=== PATIENT | female | born 1960 | race Caucasian/White ===

== ENCOUNTER 2017-09-15 14:38 | Emergency (ER) | payer MEDICARE, MEDICAID ==
[2017-09-15 15:27] LABS: Bilirubin Small (Negative); Blood, Urine Negative (Negative); Clarity Clear (Clear); Glucose, Urine (Dipstick) Negative (Negative); Leukocyte Negative (Negative); Nitrite Negative (Negative); Protein, Urine (Dipstick) Negative (Neg-Trace); Urobilinogen 0.2 mg/dL (0.2-1.0)
== END 2017-09-15 16:34 | disposition home or self-care (01) ==
LOC: BURERS 14:38
DX: M54.5 Low back pain (principal); E11.9 Type 2 diabetes mellitus without complications
CPT/HCPCS: 51701; 81003; 87086; 87480; 87510; 87660

== ENCOUNTER 2022-10-26 16:30 | Emergency (ER) | payer MEDICAID, MEDICARE, OTHER ==
[2022-10-26 18:11] LABS: Bilirubin Negative (Negative); Blood, Urine Negative (Negative); Clarity Slightly Cloudy (Clear); Glucose, Urine (Dipstick) Negative (Negative); Ketone, Urine Negative (Negative); Leukocyte Small (Negative); Nitrite Negative (Negative); Protein, Urine (Dipstick) Negative (Neg-Trace); Urobilinogen 0.2 mg/dL (Less than 2)
[2022-10-26 18:26] LABS: Bacteria/HPF 1+ HPF (None Seen); RBC/HPF None Seen HPF (0-3); Squamous Epithelial 0-3 HPF (0-3)
[2022-10-26] MEDS ORDERED: cefTRIAXone\\ROCEPHIN 1 GM VIAL ONE (18:31)
[2022-10-26] MEDS ORDERED: Ketorolac Tromethamine 30 MG/ML VIAL ONE (18:31)
[2022-10-26] MEDS ORDERED: Sterile Water 10 ML ONE (18:34)
== END 2022-10-26 18:51 | disposition home or self-care (01) ==
LOC: BURERS 16:30
DX: B34.9 Viral infection, unspecified (principal); N39.0 Urinary tract infection, site not specified; E11.9 Type 2 diabetes mellitus without complications; I10 Essential (primary) hypertension; Z79.84 Long term (current) use of oral hypoglycemic drugs; Z20.822 Contact with and (suspected) exposure to COVID-19
CPT/HCPCS: 71045; 81003; 81015; 87804; 93005; 96372; J0696; J1885; U0003; U0005

== ENCOUNTER 2022-12-19 12:30 | Emergency (ER) | payer OTHER, MEDICAID ==
[2022-12-19] MEDS ORDERED: Cephalexin 250 MG CAP ONE (13:11)
[2022-12-19] MEDS ORDERED: Acyclovir 400 mg Tablet ONE (13:11)
== END 2022-12-19 13:15 | disposition home or self-care (01) ==
LOC: BURERS 12:30
DX: L03.311 Cellulitis of abdominal wall (principal); L03.115 Cellulitis of right lower limb; A60.04 Herpesviral vulvovaginitis; I10 Essential (primary) hypertension; E11.9 Type 2 diabetes mellitus without complications; Z87.891 Personal history of nicotine dependence; Z79.84 Long term (current) use of oral hypoglycemic drugs; Z79.899 Other long term (current) drug therapy
CPT/HCPCS: 99283

== ENCOUNTER 2022-12-21 13:56 | Emergency (ER) | payer OTHER, MEDICAID | END 2022-12-21 14:30 | disposition home or self-care (01) | LOC: BURERS 13:56 | DX: L03.311 Cellulitis of abdominal wall (principal); E11.9 Type 2 diabetes mellitus without complications; I10 Essential (primary) hypertension; Z87.891 Personal history of nicotine dependence; Z79.84 Long term (current) use of oral hypoglycemic drugs; Z79.899 Other long term (current) drug therapy | CPT/HCPCS: 99283 ==

== ENCOUNTER 2023-01-14 09:11 | Emergency (ER) | payer OTHER, MEDICAID | END 2023-01-14 09:50 | disposition home or self-care (01) | LOC: BURERS 09:11 | DX: B34.9 Viral infection, unspecified (principal); I10 Essential (primary) hypertension; E11.9 Type 2 diabetes mellitus without complications; Z20.822 Contact with and (suspected) exposure to COVID-19; Z87.891 Personal history of nicotine dependence; Z79.84 Long term (current) use of oral hypoglycemic drugs; Z79.899 Other long term (current) drug therapy | CPT/HCPCS: U0003; U0005; 99283 ==